=== PATIENT | male | born 1950 | race Caucasian/White ===

== ENCOUNTER 2019-04-03 13:52 | Inpatient (IN) | payer OTHER ==
[~2019-04-03] VITALS: Ht 165.1 cm; Wt 84.8 kg
[2019-04-03 14:02] VITALS: Ht 165.1 cm; Wt 84.8 kg
[2019-04-03 15:07] LABS: BASOPHIL % 0.1 % (0-2); PLATELET COUNT 197 x10^3mcL (130-400); RED CELL DISTRIBUTION WIDTH 13.7 % (11.5-14.5)
[2019-04-03 15:19] LABS: CARBON DIOXIDE 28.5 mmol/L (21-32); CREATININE SERUM 1.4 mg/dL (0.7-1.3); POTASSIUM SERUM 4.2 mmol/L (3.5-5.1)
[2019-04-03 15:24] LABS: ALBUMIN 3.7 g/dL (3.4-5.0); BILIRUBIN TOTAL 1.3 mg/dL (0.20-1.00); TOTAL PROTEIN, SERUM 7.7 g/dL (6.4-8.2)
[2019-04-03 16:29] LABS: UA SPECIFIC GRAVITY >=1.030 (1.005-1.035); microscopic required? YES; urine erythrocyte NEGATIVE (NEGATIVE)
[2019-04-03 19:34] LABS: AMPHETAMINE QUAL UR NONE DETECTED (See below)
[2019-04-03 20:42] VITALS: BP 116/62
[2019-04-04 05:50] VITALS: BP 123/57
[2019-04-04 07:14] LABS: CALCIUM 8.3 mg/dL (8.5-10.1); CARBON DIOXIDE 24.7 mmol/L (21-32); CREATININE SERUM 1.5 mg/dL (0.7-1.3); MAGNESIUM 1.9 mg/dL (1.8-2.4); PHOSPHOROUS 3.5 mg/dL (2.5-4.9); POTASSIUM SERUM 4.3 mmol/L (3.5-5.1)
[2019-04-04 07:41] LABS: PLATELET COUNT 156 x10^3mcL (130-400); RED CELL DISTRIBUTION WIDTH 13.9 % (11.5-14.5)
[2019-04-04 08:48] LABS: BAND NEUTROPHIL 31 % (0-10); MONOCYTE 6 % (0-7); SEGMENTED NEUTROPHILS 62 % (37-75); rbc morphology (normal/abnorm) ABNORMAL (NORMAL)
[2019-04-04 08:49] LABS: PLATELET MORPHOLOGY PLATELETS INCREASED
[2019-04-04 08:55] LABS: ALBUMIN 2.7 g/dL (3.4-5.0); BILIRUBIN DIRECT 2.19 mg/dL (0.0-0.2); BILIRUBIN TOTAL 2.96 mg/dL (0.20-1.00); TOTAL PROTEIN, SERUM 6.3 g/dL (6.4-8.2)
[2019-04-04 09:07] VITALS: BP 96/60
[2019-04-04] MEDS ORDERED: NOR10 PO (09:57)
[2019-04-04] MEDS ORDERED: FINASTERIDE1 MG PO ×2 (09:57→10:04)
[2019-04-04] MEDS ORDERED: FLOMAX0.4 MG PO (09:58)
[2019-04-04] MEDS ORDERED: ACTOS15 M1 PO (09:58)
[2019-04-04] MEDS ORDERED: VASOTEC10 MG PO (09:59)
[2019-04-04] MEDS ORDERED: LANTI SQ (09:59)
[2019-04-04] MEDS ORDERED: TRULICITY PO (10:01)
[2019-04-04 12:20] VITALS: BP 129/67
[2019-04-04 17:44] VITALS: BP 135/68
[2019-04-04 20:15] VITALS: BP 135/66
[2019-04-05 05:50] VITALS: BP 145/71
[2019-04-05 06:34] LABS: BASOPHIL % 0 % (0-2); PLATELET COUNT 149 x10^3mcL (130-400); RED CELL DISTRIBUTION WIDTH 13.7 % (11.5-14.5)
[2019-04-05 06:36] LABS: CALCIUM 7.9 mg/dL (8.5-10.1); CARBON DIOXIDE 28.1 mmol/L (21-32); CREATININE SERUM 1.3 mg/dL (0.7-1.3); MAGNESIUM 1.9 mg/dL (1.8-2.4); PHOSPHOROUS 2.3 mg/dL (2.5-4.9); POTASSIUM SERUM 4.3 mmol/L (3.5-5.1)
[2019-04-05 13:06] VITALS: BP 153/68
[2019-04-05 18:59] VITALS: BP 158/77
[2019-04-05 20:37] VITALS: BP 160/78
[2019-04-06 05:25] VITALS: BP 163/80
[2019-04-06 07:44] LABS: PLATELET COUNT 166 x10^3mcL (130-400); RED CELL DISTRIBUTION WIDTH 13.3 % (11.5-14.5)
[2019-04-06 07:47] LABS: BASOPHIL % 0 % (0-2)
[2019-04-06 08:04] LABS: CALCIUM 8.3 mg/dL (8.5-10.1); CARBON DIOXIDE 27.4 mmol/L (21-32); CHLORIDE SERUM 98 mmol/L (98-107); GFR1 > 60 mL/min; GLUCOSE SERUM 162 mg/dL (74-106); MAGNESIUM 1.9 mg/dL (1.8-2.4); PHOSPHOROUS 1.7 mg/dL (2.5-4.9); POTASSIUM SERUM 3.7 mmol/L (3.5-5.1); SODIUM SERUM 132 mmol/L (136-145)
[2019-04-06 08:10] LABS: ALPHA FETOPROTEIN TUMOR MARKER 1.4 ng/mL (0.0-8.3)
[2019-04-06 08:41] VITALS: BP 166/80
[2019-04-06 12:41] VITALS: BP 136/76
[2019-04-06 17:10] VITALS: BP 136/82
[2019-04-06 19:36] VITALS: BP 169/84
[2019-04-07 06:13] VITALS: BP 152/77
[2019-04-07 06:33] LABS: BASOPHIL % 0.4 % (0-2); PLATELET COUNT 183 x10^3mcL (130-400); RED CELL DISTRIBUTION WIDTH 14.1 % (11.5-14.5)
[2019-04-07 07:02] LABS: POTASSIUM SERUM 4.2 mmol/L (3.5-5.1)
[2019-04-07 07:03] LABS: CALCIUM 9.2 mg/dL (8.5-10.1); CARBON DIOXIDE 31.3 mmol/L (21-32); CREATININE SERUM 1.3 mg/dL (0.7-1.3)
[2019-04-07 08:06] VITALS: BP 138/75
[2019-04-07 13:05] VITALS: BP 133/79
[2019-04-07 17:28] VITALS: BP 120/68
[2019-04-07 20:34] VITALS: BP 108/63
[2019-04-08 05:54] VITALS: BP 137/67
[2019-04-08 07:20] LABS: BASOPHIL % 0.2 % (0-2); PLATELET COUNT 204 x10^3mcL (130-400); RED CELL DISTRIBUTION WIDTH 14.1 % (11.5-14.5)
[2019-04-08 07:30] LABS: CALCIUM 8.9 mg/dL (8.5-10.1); CARBON DIOXIDE 28.7 mmol/L (21-32); CREATININE SERUM 1.3 mg/dL (0.7-1.3); POTASSIUM SERUM 3.8 mmol/L (3.5-5.1)
[2019-04-08 08:39] VITALS: BP 146/74
[2019-04-08 12:20] VITALS: BP 124/63
[2019-04-08] MEDS ORDERED: LEVAQUIN500 M1 PO (13:39)
[2019-04-08 15:25] VITALS: BP 124/63
== END 2019-04-08 16:50 | disposition home or self-care (01) | DRG 871 ==
LOC: ED 13:52 → DU 17:20 → MU 17:20 → DU 20:16 → MU 04-05 15:18
PROVIDERS: Emergency Medicine; Internal Medicine; ADMIT Family Medicine
DX: A41.9 Sepsis, unspecified organism (principal); J18.9 Pneumonia, unspecified organism; K75.0 Abscess of liver; K72.90 Hepatic failure, unspecified without coma; E11.65 Type 2 diabetes mellitus with hyperglycemia; K80.20 Calculus of gallbladder without cholecystitis without obstruction; I10 Essential (primary) hypertension; Z68.30 Body mass index [BMI] 30.0-30.9, adult; Z79.84 Long term (current) use of oral hypoglycemic drugs
CPT/HCPCS: 82962; A9577; G0378; J0696; J1200; J2185; J2270; J2405; J2543; J3490; J7030; Q0092; Q9967